=== PATIENT | male | born 1985 | race Caucasian/White ===

== ENCOUNTER 2023-11-12 15:14 | Emergency (ER) | payer OTHER, SELFPAY ==
[2023-11-12] VITALS (9 sets, daily range): BP systolic 127–152; BP diastolic 85–101; PULSE 65–91; RESP 16–18; TEMP 36.8; O2SAT 96–100; BMI 25.1
--- NOTE | 2023-11-12 15:18 | ED_ITS ---
<Statement entered by Braulio Jacobo MD - 11/12/23 21:16> I was consulted by the MAXWE[facility], and we discussed the complexity of the problems being addressed. I approved the treatment and management plan for this patient's care in the emergency department, thus performing a substantive portion of the medical decision making. Braulio Jacobo MD Discharge Plan Disposition Patient Disposition: Home, Self-Care Condition: Good Prescriptions Prescriptions: No Action No Known Home Medications Referrals Follow up/Referrals: Maeve Alfaro [Primary Care Provider] - See instructions Denton Berman MD [Staff Physician] - See instructions (Uncontrolled blood pressure, chest pressure) Activity Restrictions/Add. Instructions Additional Instructions/Restrictions: I have referred you to cardiology for further evaluation and control of your blood pressure. Please follow-up closely with your PCP for outpatient scheduling of MRI of findings on the CT scan of the head. Return to ER for worsening signs or symptoms as needed. Clinical Impressions Clinical Impression: Hypertension, uncontrolled, Chest pressure Instructions Patient Instructions: Essential Hypertension Discharge ED Provider: Braulio Jacobo General Adult HPI <RUPINDER Aguillon - Last Filed: 11/12/23 19:02> General Chief complaint: PAIN Stated complaint: HBP,weakness,pressure in neck Time Seen by Provider: 11/12/23 15:18 History of Present Illness HPI narrative: Patient presents for evaluation of high blood pressure and chest pressure. Patient states for 2 weeks he has been experiencing bilateral neck pressure, without any known injury or trauma, that is worse when he bends over. Patient states he also gets dizzy when he stands up. He started taking his blood pressure thinking that that could be a cause and noted that his systolic was high but reports that is never been over 150s systolic and reports that his diastolic has never been over 104. He has no known past medical history and is on no home medications. There are no aggravating or relieving factors. However patient also today stated that he started having chest pressure with the same symptoms so he came to the emergency department for evaluation patient currently denies shortness of breath fever chills hemoptysis hematochezia melena nausea vomiting diarrhea. Related Data Home Medications Medication Instructions Recorded Confirmed No Known Home Medications 05/15/20 11/12/23 Allergies Allergy/AdvReac Type Severity Reaction Status Date / Time No Known Allergies Allergy Verified 11/12/23 15:43 PFSH <RUPINDER Aguillno - Last Filed: 11/12/23 19:02> [facility] Disclaimer: The information contained in this section may have been updated after the patient was seen, as this information can be updated by other users. Social History (Updated 11/12/23 @ 18:53 by RUPINDER Aguillon) Smoking Status: Never smoker alcohol intake: never current occupational status: employed Travel in the last 8 weeks: None <RUPINDER Aguillon - Last Filed: 11/12/23 19:02> ROS Obtained: Yes Systems reviewed as appropriate & no additional complaints except as documented Physical Exam <RUPINDER Aguillon - Last Filed: 11/12/23 19:02> General General appearance: alert and in no apparent distress Head Head exam: atraumatic and normal inspection Eye Eye exam: Present normal appearance, PERRL and EOMI ENT ENT exam: Present normal exam, normal oropharynx and mucous membranes moist Neck Neck exam: Present normal inspection, full ROM, trachea midline and other (No carotid bruits); Absent tenderness or lymphadenopathy Chest Chest inspection: Present normal inspection and symmetric chest wall rise; Absent tenderness Respiratory Respiratory exam: Present normal lung sounds bilaterally; Absent respiratory distress, wheezes or accessory muscle use Cardiovascular Cardiovascular exam: Present regular rate, normal rhythm, normal heart sounds, +S1 and +S2 Abdominal Exam Abdominal exam: Present soft; Absent distention or tenderness Extremities Exam Extremities exam: Present normal inspection and full ROM; Absent tenderness Back Exam Back exam: Present normal inspection and full ROM; Absent tenderness Neurological Exam Neurological exam: Present alert, oriented X3 and CN II-XII intact Psychiatric Psychiatric exam: Present anxious (Patient seems to be slightly anxious but awake alert and cooperative) Skin Skin exam: Present warm, dry and normal color Medical Decision Making <RUPINDER Aguillon - Last Filed: 11/12/23 19:02> Medical Records Medical records reviewed: Yes I reviewed the patient's medical records. Paul Inquiry Pt receiving controlled substance: No Vital Signs: 11/12/23 15:17 11/12/23 15:30 11/12/23 16:15 Temperature 98.3 F Temperature Source Oral Pulse Rate 75 70 Pulse Rate [Left Radial] 91 H Respiratory Rate 18 Blood Pressure Blood Pressure [Right Arm] 148/101 H Blood Pressure Mean Blood Pressure Mean [Right Arm] 116 Blood Pressure Source [Right Arm] Automatic Cuff Blood Pressure Position [Right Arm] Sitting 02 Sat by Pulse Oximetry 99 99 100 Oxygen Delivery Method Room Air 11/12/23 16:27 11/12/23 17:00 11/12/23 17:08 Temperature Temperature Source Pulse Rate 78 65 73 Pulse Rate [Left Radial] Respiratory Rate 18 Blood Pressure 127/85 127/93 H Blood Pressure [Right Arm] Blood Pressure Mean 105 Blood Pressure Mean [Right Arm] Blood Pressure Source [Right Arm] Blood Pressure Position [Right Arm] 02 Sat by Pulse Oximetry 97 96 98 Oxygen Delivery Method 11/12/23 18:00 11/12/23 18:30 Temperature Temperature Source Pulse Rate 68 72 Pulse Rate [Left Radial] Respiratory Rate 18 16 Blood Pressure 148/92 H 152/90 H Blood Pressure [Right Arm] Blood Pressure Mean Blood Pressure Mean [Right Arm] Blood Pressure Source [Right Arm] Blood Pressure Position [Right Arm] 02 Sat by Pulse Oximetry 98 98 Oxygen Delivery Method Lab Data Lab results reviewed: Yes I reviewed the patient's lab results. Lab Results 11/12/23 15:41: WBC 6.0, RBC 4.86, Hgb 14.4, Hct 44.1, MCV 90.7, MCH 29.6, MCHC 32.7, RDW 13.2, Plt Count 260, MPV 9.0, Neut % (Auto) 50.8, Lymph % (Auto) 38.0, [place] % (Auto) 6.7, Eos % (Auto) 3.4, Baso % (Auto) 1.1, Neut # (Auto) 3.1, Lymph # (Auto) 2.3, [place] # (Auto) 0.4, Eos # (Auto) 0.2, Baso # (Auto) 0.1, PT 11.6, INR 1.08, Sodium 139, Potassium 3.9, Chloride 106, Carbon Dioxide 27, Anion Gap 9.9, BUN 14, Creatinine 1.00, Estimated Creat Clear 108, Estimated GFR 83, Est GFR ( Amer) 101, Glucose 91, Calcium 9.4, Magnesium 1.9, Total Bilirubin 0.4, AST 31, ALT 19, Alkaline Phosphatase 62, Troponin I < 0.01, NT-Pro-B Natriuret Pep 42.5, Total Protein 7.4, Albumin 4.5, Globulin 2.9, Albumin/Globulin Ratio 1.6, TSH 2.27 11/12/23 17:10: Urine Color Yellow, Urine Appearance Clear, Urine pH 7.0, Ur Specific Gilbert <= 1.005, Urine Protein Negative, Urine Glucose (UA) Negative, Urine Ketones Negative, Urine Blood Negative, Urine Nitrate Negative, Urine Bilirubin Negative, Urine Urobilinogen 0.2, Ur Leukocyte Esterase Negative, Urine RBC Occasional, Urine WBC None, Ur Squamous Epith Cells None, Urine Bacteria None 11/12/23 17:40: Troponin I < 0.01 11/12/23 15:41 11/12/23 15:41 Orders (Tests/Meds): ED MEDICATIONS Discontinued Medications Generic Name Dose Route Start Last Admin Trade Name Freq PRN Reason Stop Dose Admin Acetaminophen 1,000 mg 11/12/23 15:27 11/12/23 16:13 Acetaminophen 1,000mg/100ml Vial IV 11/12/23 15:28 1,000 mg ONCE ONE Administration Iopamidol 150 ml 11/12/23 16:41 11/12/23 16:53 Iopamidol-370 (76%);100ml Bottle IV 11/12/23 16:42 150 ml ONCE ONE Administration Prochlorperazine Edisylate 10 mg 11/12/23 15:53 11/12/23 16:13 Prochlorperazine 10mg/2ml Vial IV 11/12/23 15:54 10 mg ONCE ONE Administration Sodium Chloride 50 ml 11/12/23 16:41 11/12/23 16:53 0.9 % Sodium Chloride 50 Ml Vial IV 11/12/23 16:42 50 ml ONCE ONE Administration Sodium Chloride 10 ml 11/12/23 16:41 11/12/23 16:53 Sodium Chloride 0.9% 10ml Syr (Rad Only) IV 11/12/23 16:42 10 ml ONCE ONE Administration ORDERS Category Date Time Status CT angio chest - dissection Stat Cat Scan 11/12/23 15:[address] angio head Stat Cat Scan 11/12/23 15:[address] angio neck Stat Cat Scan 11/12/23 15:[address] head/brain wo con Stat Cat Scan 11/12/23 15:28 Completed BNP [NT Pro Brain Natriuretic Pep.] Stat Lab 06/05/24 15:41 Completed CBC w/Auto Diff [Complete Blood Count Auto Diff] Stat Lab 11/12/23 15:41 Completed CMP [Comprehensive Metabolic Panel] Stat Lab 11/12/23 15:41 Completed INR [Prothrombin Time INR] Stat Lab 11/12/23 15:41 Completed Magnesium Stat Lab 11/12/23 15:41 Completed TSH [Thyroid Stimulating Hormone] Stat Lab 11/12/23 15:41 Completed Trop I [Troponin I] Stat Lab 11/12/23 15:41 Completed Troponin I Q3H Lab 11/12/23 17:40 Completed Troponin I Q3H Lab 11/12/23 21:30 Ordered UA [Urinalysis and Microscopic] Stat Lab 11/12/23 17:10 Completed HEART Score History (anamnesis): Slightly suspicious ECG: Normal Age: <45 years Risk factors: No known risk factors Troponin: </= normal limit HEART Score: 0 Medical Decision Narrative: In summary patient is a 38-year-old male who presents to the emergency department for evaluation of high blood pressure and chest pressure. Patient is hemodynamically stable upon arrival, afebrile. Zickel exam is unremarkable and nonfocal. Differential diagnosis includes ACS versus uncontrolled hypertension versus anxiety versus dissection versus mass occupying lesion versus vertebral dissection etc. Initial workup will be conducted with hematologic labs twelve-lead EKG CT of the head without contrast and CTA of the head neck and chest.. Initial interventions include continuous cardiac monitoring and pulse oximetry along with acetaminophen IV and Compazine initial workup reviewed by me hematologic labs are nonactionable and his troponins are negative x 2 and my informal review of his imaging prior to radiology read shows no acute intracranial processes mass or stroke. Radiology however read that on the noncontrasted CT of the head that there was an ill-defined hyperattenuating structure in the right elisha that is indeterminate and likely spurious from beam hardening artifact. Had an interactive discussion with the radiologist regarding this finding and she stated that it did not require suggest an emergent workup and could be done as an outpatient. She also stated that it was not correlated on the CTA of the head making this even more likely spurious artifact. Upon repeat evaluation patient had significant resolution of his symptoms and is now normotensive with a blood pressure 127/93 heart rate 73 and is asymptomatic. Given this patient is appropriate for discharge with referral to cardiology and follow-up with his PCP for outpatient MRI for findings in the noncontrasted CT of the head. <Braulio G Jacobo, MD - Last Filed: 11/12/23 15:59> Vital Signs: 11/12/23 15:17 11/12/23 15:30 11/12/23 16:15 Temperature 98.3 F Temperature Source Oral Pulse Rate 75 70 Pulse Rate [Left Radial] 91 H Respiratory Rate 18 Blood Pressure Blood Pressure [Right Arm] 148/101 H Blood Pressure Mean Blood Pressure Mean [Right Arm] 116 Blood Pressure Source [Right Arm] Automatic Cuff Blood Pressure Position [Right Arm] Sitting 02 Sat by Pulse Oximetry 99 99 100 Oxygen Delivery Method Room Air 11/12/23 16:27 11/12/23 17:00 11/12/23 17:08 Temperature Temperature Source Pulse Rate 78 65 73 Pulse Rate [Left Radial] Respiratory Rate 18 Blood Pressure 127/85 127/93 H Blood Pressure [Right Arm] Blood Pressure Mean 105 Blood Pressure Mean [Right Arm] Blood Pressure Source [Right Arm] Blood Pressure Position [Right Arm] 02 Sat by Pulse Oximetry 97 96 98 Oxygen Delivery Method 11/12/23 18:00 11/12/23 18:30 Temperature Temperature Source Pulse Rate 68 72 Pulse Rate [Left Radial] Respiratory Rate 18 16 Blood Pressure 148/92 H 152/90 H Blood Pressure [Right Arm] Blood Pressure Mean Blood Pressure Mean [Right Arm] Blood Pressure Source [Right Arm] Blood Pressure Position [Right Arm] 02 Sat by Pulse Oximetry 98 98 Oxygen Delivery Method Lab Data Lab Results 11/12/23 15:41: WBC 6.0, RBC 4.86, Hgb 14.4, Hct 44.1, MCV 90.7, MCH 29.6, MCHC 32.7, RDW 13.2, Plt Count 260, MPV 9.0, Neut % (Auto) 50.8, Lymph % (Auto) 38.0, [place] % (Auto) 6.7, Eos % (Auto) 3.4, Baso % (Auto) 1.1, Neut # (Auto) 3.1, Lymph # (Auto) 2.3, [place] # (Auto) 0.4, Eos # (Auto) 0.2, Baso # (Auto) 0.1, PT 11.6, INR 1.08, Sodium 139, Potassium 3.9, Chloride 106, Carbon Dioxide 27, Anion Gap 9.9, BUN 14, Creatinine 1.00, Estimated Creat Clear 108, Estimated GFR 83, Est GFR ( Amer) 101, Glucose 91, Calcium 9.4, Magnesium 1.9, Total Bilirubin 0.4, AST 31, ALT 19, Alkaline Phosphatase 62, Troponin I < 0.01, NT-Pro-B Natriuret Pep 42.5, Total Protein 7.4, Albumin 4.5, Globulin 2.9, Albumin/Globulin Ratio 1.6, TSH 2.27 11/12/23 17:10: Urine Color Yellow, Urine Appearance Clear, Urine pH 7.0, Ur Specific [place] <= 1.005, Urine Protein Negative, Urine Glucose (UA) Negative, Urine Ketones Negative, Urine Blood Negative, Urine Nitrate Negative, Urine Bilirubin Negative, Urine Urobilinogen 0.2, Ur Leukocyte Esterase Negative, Urine RBC Occasional, Urine WBC None, Ur Squamous Epith Cells None, Urine Bacteria None 11/12/23 17:40: Troponin I < 0.01 Orders (Tests/Meds): ED MEDICATIONS Discontinued Medications Generic Name Dose Route Start Last Admin Trade Name Marsha PRN Reason Stop Dose Admin Acetaminophen 1,000 mg 11/12/23 15:27 11/12/23 16:13 Acetaminophen 1,000mg/100ml Vial IV 11/12/23 15:28 1,000 mg ONCE ONE Administration Iopamidol 150 ml 11/12/23 16:41 11/12/23 16:53 Iopamidol-370 (76%);100ml Bottle IV 11/12/23 16:42 150 ml ONCE ONE Administration Prochlorperazine Edisylate 10 mg 11/12/23 15:53 11/12/23 16:13 Prochlorperazine 10mg/2ml Vial IV 11/12/23 15:54 10 mg ONCE ONE Administration Sodium Chloride 50 ml 11/12/23 16:41 11/12/23 16:53 0.9 % Sodium Chloride 50 Ml Vial IV 11/12/23 16:42 50 ml ONCE ONE Administration Sodium Chloride 10 ml 11/12/23 16:41 11/12/23 16:53 Sodium Chloride 0.9% 10ml Syr (Rad Only) IV 11/12/23 16:42 10 ml ONCE ONE Administration ORDERS Category Date Time Status CT angio chest - dissection Stat Cat Scan 11/12/23 15:[address] angio head Stat Cat Scan 11/12/23 15:[address] angio neck Stat Cat Scan 11/12/23 15:[address] head/brain wo con Stat Cat Scan 11/12/23 15:28 Completed BNP [NT Pro Brain Natriuretic Pep.] Stat Lab 11/12/23 15:41 Completed CBC w/Auto Diff [Complete Blood Count Auto Diff] Stat Lab 11/12/23 15:41 Completed CMP [Comprehensive Metabolic Panel] Stat Lab 11/12/23 15:41 Completed INR [Prothrombin Time INR] Stat Lab 11/12/23 15:41 Completed Magnesium Stat Lab 11/12/23 15:41 Completed TSH [Thyroid Stimulating Hormone] Stat Lab 11/12/23 15:41 Completed Trop I [Troponin I] Stat Lab 11/12/23 15:41 Completed Troponin I Q3H Lab 11/12/23 17:40 Completed Troponin I Q3H Lab 11/12/23 21:30 Ordered UA [Urinalysis and Microscopic] Stat Lab 11/12/23 17:10 Completed ECG Data Tracing #1: Independently interpreted by me, rate is 67, rhythm is regular, axis is normal, no ST elevation in anatomical contiguous leads, QTc 363. Critical Care <RUPINDER Aguillon - Last Filed: 11/12/23 19:02> Critical Care Time Critical Care Time: No
--- NOTE | 2023-11-12 15:28 | CT_ITS ---
PROCEDURE INFORMATION: Exam: CT Head Without Contrast Exam date and time: 11/12/2023 4:40 PM Age: 38 years old Clinical indication: Dizziness TECHNIQUE: Imaging protocol: Computed tomography of the head without contrast. Radiation optimization: All CT scans at this facility use at least one of these dose optimization techniques: automated exposure control; mA and/or kV adjustment per patient size (includes targeted exams where dose is matched to clinical indication); or iterative reconstruction. COMPARISON: No relevant prior studies available. FINDINGS: Brain: Ill-defined hyperattenuating structure in the right elisha is indeterminate and likely spurious from beam hardening artifact. Evaluation with brain MRI is recommended for better evaluation. No evidence of acute parenchymal hemorrhage, extra-axial collection or local regional mass effect. Cerebral ventricles: The ventricles, sulci and cisterns are normal in size and configuration. No hydrocephalus or midline structure shift Pituitary gland and sella: Sellar/parasellar structures, orbits and craniocervical junction are unremarkable Paranasal sinuses: Visualized sinuses are unremarkable. No fluid levels. Mastoid air cells: Visualized mastoid air cells are well aerated. Bones: No calvarial fracture Soft tissues: Unremarkable. IMPRESSION: Ill-defined hyperattenuating structure in the right elisha is indeterminate and likely spurious from beam hardening artifact. Evaluation with brain MRI is recommended for better evaluation. Otherwise, no acute intracranial abnormality
--- NOTE | 2023-11-12 15:42 | ECG_ITS ---
APPROVED REPORT Exam: Resting ECG HR:67 bpm ECG Measurements Heart Rate 67 AXES OR 155 P 46 QRSd 88 QRS 51 QT 347 T 29 QTc 363 Conclusion SINUS RHYTHM POSSIBLE RIGHT VENTRICULAR CONDUCTION DELAY [RSR (QR) IN V1/V2] BORDERLINE ECG Electronically signed by : ZAC LANDAVERDE, 11/12/2023 21:41:45
--- NOTE | 2023-11-12 15:51 | CT_ITS ---
PROCEDURE INFORMATION: Exam: CTA Neck With Contrast Exam date and time: 11/12/2023 4:43 PM Age: 38 years old Clinical indication: Dizziness and giddiness; Additional info: Dizziness chest pain TECHNIQUE: Imaging protocol: Computed tomographic angiography of the neck with contrast. Exam focused on the cervical segments of the vasculature. 3D rendering (Not supervised by radiologist): MIP and/or 3D reconstructed images were created by the technologist. Radiation optimization: All CT scans at this facility use at least one of these dose optimization techniques: automated exposure control; mA and/or kV adjustment per patient size (includes targeted exams where dose is matched to clinical indication); or iterative reconstruction. Contrast material: ISOVUE; Contrast volume: 75 ml; Contrast route: INTRAVENOUS (IV); COMPARISON: CT ANGIO HEAD 11/12/2023 4:43 PM FINDINGS: Right common carotid artery: No stenosis. No dissection or occlusion. Right internal carotid artery: No stenosis of the extracranial segment. No dissection or occlusion. Right external carotid artery: No occlusion or stenosis of the origin. Left common carotid artery: No stenosis. No dissection or occlusion. Left internal carotid artery: No stenosis of the extracranial segment. No dissection or occlusion. Left external carotid artery: No occlusion or stenosis of the origin. Right vertebral artery: No stenosis. No dissection or occlusion. Left vertebral artery: No stenosis. No dissection or occlusion. Soft tissues: Normal. No significant soft tissue swelling. Bones/joints: No acute fracture. IMPRESSION: No stenosis or occlusion. REFERENCES: NASCET CRITERIA. The degree of stenosis in the cervical segment of the internal carotid artery is based on NASCET criteria. Normal is no stenosis. Mild is less than 50% stenosis. Moderate is 50-69% stenosis. Severe is 70% to 99% stenosis. Total occlusion is no detectable patent lumen.
--- NOTE | 2023-11-12 15:51 | CT_ITS ---
PROCEDURE INFORMATION: Exam: CTA Chest With Contrast Exam date and time: 11/12/2023 4:46 PM Age: 38 years old Clinical indication: Other: Dizziness; Additional info: Dizziness, chest pain TECHNIQUE: Imaging protocol: Computed tomographic angiography of the chest with contrast. Exam focused on the arteries. 3D rendering (Not supervised by radiologist): MIP and/or 3D reconstructed images were created by the technologist. Radiation optimization: All CT scans at this facility use at least one of these dose optimization techniques: automated exposure control; mA and/or kV adjustment per patient size (includes targeted exams where dose is matched to clinical indication); or iterative reconstruction. Contrast material: ISOVUE; Contrast volume: 75 ml; Contrast route: INTRAVENOUS (IV); COMPARISON: CT ANGIO NECK 11/12/2023 4:43 PM FINDINGS: Pulmonary arteries: Normal. No pulmonary emboli. Aorta: Unremarkable. No aortic aneurysm. No aortic dissection. Lungs: Unremarkable. No consolidation. No masses. Pleural spaces: Unremarkable. No pneumothorax. No pleural effusion. Heart: Unremarkable. No cardiomegaly. No pericardial effusion. Lymph nodes: Unremarkable. No enlarged lymph nodes. Bones/joints: Unremarkable. No acute fracture. Soft tissues: Unremarkable. IMPRESSION: No acute findings.
--- NOTE | 2023-11-12 15:51 | CT_ITS ---
PROCEDURE INFORMATION: Exam: CTA Head With Contrast, Arteriography Exam date and time: 11/12/2023 4:43 PM Age: 38 years old Clinical indication: Dizziness and giddiness; Additional info: Dizziness headache TECHNIQUE: Imaging protocol: Computed tomographic angiography of the head with contrast. Exam focused on the arteries. 3D rendering (Not supervised by radiologist): MIP and/or 3D reconstructed images were created by the technologist. Radiation optimization: All CT scans at this facility use at least one of these dose optimization techniques: automated exposure control; mA and/or kV adjustment per patient size (includes targeted exams where dose is matched to clinical indication); or iterative reconstruction. Contrast material: ISOVUE; Contrast volume: 75 ml; Contrast route: INTRAVENOUS (IV); COMPARISON: CT HEAD/BRAIN WO CON 11/12/2023 4:40 PM FINDINGS: ANTERIOR CIRCULATION: Right internal carotid artery: Intracranial segment is patent with no significant stenosis. No aneurysm. Right middle cerebral artery: No occlusion or significant stenosis. No aneurysm. Right anterior cerebral artery: No occlusion or significant stenosis. No aneurysm. Left internal carotid artery: Intracranial segment is patent with no significant stenosis. No aneurysm. Left middle cerebral artery: No occlusion or significant stenosis. No aneurysm. Left anterior cerebral artery: No occlusion or significant stenosis. No aneurysm. POSTERIOR CIRCULATION: Right vertebral artery: No occlusion or significant stenosis. No aneurysm. Left vertebral artery: No occlusion or significant stenosis. No aneurysm. Basilar artery: No occlusion or significant stenosis. No aneurysm. Right posterior cerebral artery: No occlusion or significant stenosis. No aneurysm. Left posterior cerebral artery: No occlusion or significant stenosis. No aneurysm. Brain: No definite mass, mass effect, or midline shift. Cerebral ventricles: No ventriculomegaly. Bones/joints: Unremarkable. No acute fracture. Soft tissues: Unremarkable. IMPRESSION: No large vessel stenosis or occlusion.
[2023-11-12 15:59] LABS: Basophils # 0.1 K/mm3 (0-0.2); Basophils % 1.1 % (0.1-2.0); Eosinophils # 0.2 K/mm3 (0.0-0.4); Eosinophils % 3.4 % (0.1-12.0); Hematocrit 44.1 % (42.0-52.0); Hemoglobin 14.4 g/dL (14.1-18.0); Lymphocytes # 2.3 K/mm3 (0.7-4.5); Mean Corpuscular HGB Conc 32.7 g/dL (31.8-35.4); Mean Corpuscular Hemoglobin 29.6 pg (27.0-31.2); Mean Corpuscular Volume 90.7 fl (80-94); Monocytes # 0.4 K/mm3 (0.1-1.0); Monocytes % 6.7 % (1.7-9.3); Neutrophils # 3.1 K/mm3 (1.8-7.8); Neutrophils % 50.8 % (37.0-80.0); Platelet Count 260 K/mm3 (142-424); Red Blood Count 4.86 M/mm3 (4.60-6.20); Red Cell Distribution Width 13.2 % (11.5-17.5)
[2023-11-12 16:05] LABS: INR 1.08 (0.9-1.1); Prothrombin Time 11.6 seconds (10.1-12.5)
[2023-11-12] MEDS: ACETAMINOPHEN 1,000MG/100ML VIAL 1000 MG IV (16:13)
[2023-11-12] MEDS: PROCHLORPERAZINE 10MG/2ML VIAL 10 MG IV (16:13)
[2023-11-12 16:14] LABS: Chloride 106 mmol/L (98-107); Potassium 3.9 mmoL/L (3.5-5.1); Sodium 139 mmol/L (136-145)
[2023-11-12 16:16] LABS: Alanine Aminotransferase 19 U/L (12-78); Aspartate Amino Transferase 31 U/L (17-59); Blood Urea Nitrogen 14 mg/dl (9-20); Creatinine Clearance Estimated 108 mL/min (50-200); Estimated Glomerular Filt Rate 83 ml/min (>60); GFR (African American) 101 ML/MIN (>60)
[2023-11-12 16:17] LABS: Albumin Level 4.5 g/dl (3.5-5.0); Albumin/Globulin Ratio 1.6 (1.1-1.8); Alkaline Phosphatase 62 U/L (38-126); Anion Gap 9.9 mEq/L (5-15); Bilirubin,Total 0.4 mg/dl (0.2-1.3); Calcium 9.4 mg/dl (8.4-10.2); Carbon Dioxide 27 mmol/L (22.0-30.0); Globulin 2.9 g/dL (1.3-3.2); Glucose 91 mg/dl (74-100); Magnesium 1.9 mg/dl (1.6-2.3); Total Protein,Serum 7.4 g/dl (6.3-8.2)
[2023-11-12 16:33] LABS: NT Pro Brain Natriuretic Pep. 42.5 pg/mL (0-125)
--- NOTE | 2023-11-12 16:34 | PC.NURSE ---
PT AWARE OF NEED FOR UA
--- NOTE | 2023-11-12 16:36 | PC.NURSE ---
PT TRANSPORTED TO RADIOLOGY
[2023-11-12 16:37] LABS: Troponin I < 0.01 ng/ml (0.00-0.034)
[2023-11-12] MEDS: SODIUM CHLORIDE 0.9% 10ML SYR (RAD ONLY) 10 ML IV (16:53)
[2023-11-12] MEDS: IOPAMIDOL-370 (76%);100ML BOTTLE 150 ML IV (16:53)
[2023-11-12] MEDS: 0.9 % SODIUM CHLORIDE 50 ML VIAL IV (16:53)
[2023-11-12 16:54] LABS: Thyroid Stimulating Hormone 2.27 uIU/mL (0.465-4.68)
[2023-11-12 17:49] LABS: Microscopic, Urine URINE MICROSCOPIC (MICROSCOPIC)
[2023-11-12 17:59] LABS: Appearance,Urine CLEAR (Clear); Bilirubin,Urine Negative (Negative); Blood, Urine Negative (Negative); Color,Urine YELLOW (Yellow); Glucose,Urine (UA) Negative (Negative); Ketones,Urine Negative (Negative); Leukocyte Esterase,Urine Negative (Negative); Nitrate,Urine Negative (Negative); Protein,Urine Negative (Negative); Specific Gravity, Urine <= 1.005 (1.005-1.030); Urobilinogen,Urine 0.2 EU/dl (0.2)
[2023-11-12 18:21] LABS: RBC,Urine Occasional #/hpf (0-3)
[2023-11-12 18:48] LABS: Troponin I < 0.01 ng/ml (0.00-0.034)
== END 2023-11-12 18:59 | disposition home or self-care (01) ==
PROVIDERS: Physician Assistant; Emergency Provider Emergency Medicine; PCP Nurse Practitioner Family
DX: R07.89 Other chest pain (principal); I10 Essential (primary) hypertension; R42 Dizziness and giddiness
CPT/HCPCS: 70450; 70496; 70498; 71275; 80053; 81001; 83735; 83880; 84443; 84484; 85025; 85610; 93005; 96374; 96375; 99285; J0131; Q9967